=== PATIENT | female | born 1960 | race African-American/Black ===

== ENCOUNTER → 2016-12-18 | Outpatient (CLI) | payer BC ==
[2015-06-21 19:00] VITALS: BP 122/74
[~2016-12-18] MED LIST: LOVA20TA2 PO; TRIA1TAB3 PO
--- NOTE | 2016-12-19 12:40 | RAD ---
DATE: 12/18/2016 EXAM: DIGITAL SCREEN BILAT W/CAD HISTORY: Screening COMPARISON: 05/05/2015 This study was interpreted with the benefit of Computerized Aided Detection (CAD). FINDINGS: The breast parenchyma shows scattered fibroglandular densities. Breast parenchyma level B. There has been little change in the appearance of the breasts when compared to the previous exam IMPRESSION: Benign findings BI-RADS CATEGORY: 2 BENIGN FINDING(S) RECOMMENDED FOLLOW-UP: 12M 12 MONTH FOLLOW-UP PQRS compliance statement: Patient information was entered into a reminder system with a target due date 12/18/2017 for the next mammogram. Mammography is a sensitive method for finding small breast cancers, but it does not detect them all and is not a substitute for careful clinical examination. A negative mammogram does not negate a clinically suspicious finding and should not result in delay in biopsying a clinically suspicious abnormality. "Our facility is accredited by the [employer] Mammography [employer]."
== END | disposition home or self-care (01) ==
LOC: MAMMO 16:29
PROVIDERS: ATTEND Family Medicine
DX: Z12.31 Encounter for screening mammogram for malignant neoplasm of breast (principal)
CPT/HCPCS: G0202; 77067

== ENCOUNTER → 2017-01-22 | Outpatient (CLI) | payer BC ==
[2015-06-21 19:00] VITALS: BP 122/74
--- NOTE | 2017-01-22 09:21 | RAD ---
Abdominal ultrasound, 01/22/2017: History: Abdominal and pelvic pain The gallbladder is within normal limits in size. There is no sonographic evidence of cholelithiasis. The gallbladder quiñones are not thickened. No bile duct dilatation is seen. There is no evidence of a hepatic mass. The visualized portions of the pancreas, spleen and both kidneys are unremarkable. The abdominal aorta and inferior vena cava show no abnormality. No free fluid is evident in the abdomen. IMPRESSION: No significant abdominal abnormality is detected. Pelvic ultrasound, 01/22/2017: Transabdominal and transvaginal scans were obtained. The uterus measures 8.5 x 6.4 x 4.0 cm. The central uterine echo complex measures 6 mm in AP dimension. This is considered to be at the upper limits of normal for the postmenopausal state. The myometrial echo pattern is heterogeneous. Several small myometrial nodules are seen. The largest of these lies posteriorly. It is relatively hypoechoic with an apparent calcification along its margin. It measures 2.3 cm. A 1.9 cm relatively isoechoic, mildly heterogeneous nodule is seen anteriorly. The findings are compatible with uterine fibroids. The ovaries are of normal size. Blood flow is present in the ovaries. No adnexal mass is seen. No free fluid is evident in the pelvis. IMPRESSION: Small uterine masses most compatible with fibroids.
== END | disposition home or self-care (01) ==
LOC: US 06:31
PROVIDERS: ATTEND Family Medicine
DX: R10.30 Lower abdominal pain, unspecified (principal); R10.2 Pelvic and perineal pain
CPT/HCPCS: 76700; 76830; 76856

== ENCOUNTER → 2018-02-08 | Outpatient (CLI) | payer BC | END | disposition home or self-care (01) | LOC: MAMMO 08:36 | DX: Z12.31 Encounter for screening mammogram for malignant neoplasm of breast (principal); I10 Essential (primary) hypertension; E78.5 Hyperlipidemia, unspecified | CPT/HCPCS: 77067 ==

== ENCOUNTER → 2019-03-07 | Outpatient (CLI) | payer BC ==
[2015-06-21 19:00] VITALS: BP 122/74
--- NOTE | 2019-03-09 08:14 | RAD ---
DATE: 03/07/2019 EXAM: DIGITAL SCREEN BILAT W/CAD HISTORY: Routine screening COMPARISON: 02/08/2018 This study was interpreted with the benefit of Computerized Aided Detection (CAD). Breast Density: SCATTERED The breast parenchyma shows scattered fibroglandular densities. Breast parenchyma level B. FINDINGS: No new or enlarging breast densities are seen. There are scattered benign type calcifications. No suspicious microcalcifications have developed. IMPRESSION: Stable mammograms without evidence of malignancy. BI-RADS CATEGORY: 2 BENIGN FINDING(S) RECOMMENDED FOLLOW-UP: 12M 12 MONTH FOLLOW-UP PQRS compliance statement: Patient information was entered into a reminder system with a target due date for the next mammogram. Mammography is a sensitive method for finding small breast cancers, but it does not detect them all and is not a substitute for careful clinical examination. A negative mammogram does not negate a clinically suspicious finding and should not result in delay in biopsying a clinically suspicious abnormality. "Our facility is accredited by the [employer] Mammography [employer]."
== END | disposition home or self-care (01) ==
LOC: MAMMO 09:00
PROVIDERS: ATTEND Family Medicine
DX: Z12.31 Encounter for screening mammogram for malignant neoplasm of breast (principal); N64.89 Other specified disorders of breast
CPT/HCPCS: 77067

== ENCOUNTER → 2020-05-17 | Outpatient (CLI) | payer BC ==
[2015-06-21 19:00] VITALS: BP 122/74
--- NOTE | 2020-05-17 15:35 | RAD ---
DATE: 05/17/2020 7:48 AM EXAM: MAMMO [place] SCREENING BILATERAL HISTORY: Screening COMPARISON: 03/07/2019 Bilateral CC and MLO views of the breasts were performed. Bilateral breast tomosynthesis was performed in CC and MLO projections. This study was interpreted with the benefit of Computerized Aided Detection (CAD). FINDINGS: Breast Density: SCATTERED The breast parenchyma shows scattered fibroglandular densities. Breast parenchyma level B No suspicious masses, microcalcifications or architectural distortion is present to suggest malignancy in either breast. The visualized axillae are unremarkable. IMPRESSION: No mammographic evidence of malignancy. BI-RADS CATEGORY: 1 NEGATIVE RECOMMENDED FOLLOW-UP: 12M 12 MONTH FOLLOW-UP Annual screening mammography is recommended, unless clinically indicated sooner based on symptoms or change in physical exam. PQRS compliance statement: Patient information was entered into a reminder system with a target due date 05/18/2021 for the next mammogram. Mammography is a sensitive method for finding small breast cancers, but it does not detect them all and is not a substitute for careful clinical examination. A negative mammogram does not negate a clinically suspicious finding and should not result in delay in biopsying a clinically suspicious abnormality. "Our facility is accredited by the [employer] Mammography [employer]."
== END | disposition home or self-care (01) ==
LOC: MAMMO 07:44
PROVIDERS: ATTEND Family Medicine
DX: Z12.31 Encounter for screening mammogram for malignant neoplasm of breast (principal)
CPT/HCPCS: 77063; 77067

== ENCOUNTER → 2021-06-12 | Outpatient (CLI) | payer BC ==
[2015-06-21 19:00] VITALS: BP 122/74
--- NOTE | 2021-06-12 09:29 | RAD ---
EXAM: Bilateral digital screening mammogram with tomosynthesis. HISTORY: 60-year-old female presents for screening mammography. TECHNIQUE: Full-field digital craniocaudal and mediolateral oblique 2D and 3D tomosynthesis images of both breasts are obtained for evaluation. Computer aided detection was applied. COMPARISON: 05/17/2020 and 03/07/2019 BREAST PARENCHYMAL DENSITY: Level B - Scattered fibroglandular densities. FINDINGS: There is no new suspicious mass, microcalcification or region of architectural distortion. There is a stable benign circumscribed nodular density within the posterior upper outer quadrant of t he left breast. IMPRESSION: BI-RADS Category 2: Benign finding(s). RECOMMENDATION: Annual mammography is recommended. If your mammogram demonstrates that you have dense breast tissue, which could hide abnormalities, and if you have other risk factors for breast cancer that have been identified, you might benefit from s upplemental screening tests that may be suggested by your ordering physician. Dense breast tissue, i n and of itself, is a relatively common condition. This information is not provided to cause undue c oncern, but rather to raise your awareness and to promote discussion with your physician regarding th e presence of other risk factors, in addition to dense breast tissue. A report of your mammography re sults will be sent to you and your physician. You should contact your physician if you have any ques tions or concerns regarding this report. Mammography is a sensitive method for finding small breast cancers, but it does not detect them all a nd is not a substitute for careful clinical examination. A negative mammogram does not negate a clin ically suspicious finding and should not result in delay in biopsying a clinically suspicious abnorma lity. PQRS compliance statement - Patient information was entered into a reminder system with a target due date for the next mammogram. "Our facility is accredited by the [employer] Mammography [employer]." Electronically signed by: Fawn Wells MD (06/12/2021 9:27 AM) [id number]
== END ==
LOC: MAMMO 08:26
PROVIDERS: ATTEND Family Medicine
DX: Z12.31 Encounter for screening mammogram for malignant neoplasm of breast (principal)
CPT/HCPCS: 77063; 77067